=== PATIENT | male | born 1970 | race Caucasian/White ===

== ENCOUNTER 2020-09-12 12:50 | Emergency (ER) | payer OTHER, SELFPAY ==
[2020-09-12 13:22] VITALS: BP 173/87; PULSE 93; RESP 18; TEMP 36.4; O2SAT 99
[2020-09-12 14:29] VITALS: BP 163/84; PULSE 83; RESP 12; O2SAT 99
[2020-09-12] MEDS: TETANUS,DIPHTHERIA,AC PERTUSSIS ADULT (0.5 ML) BOOSTRIX IM (15:47)
--- NOTE | 2020-09-12 18:00 | ED.GENADULT ---
HPI - General Adult General Chief complaint: Wound/Laceration Stated complaint: L index finger laceration at work Time Seen by Provider: 09/12/20 14:42 Source: patient Mode of arrival: ambulatory Limitations: no limitations History of Present Illness HPI narrative: Patient presents with chief complaint of laceration to the volar aspect of the left second digit that he sustained with a metal piece on a PVC pipe. He denies any crushing injury or loss of range of motion. Patient states he is not up-to-date on tetanus. Related Data Allergies Allergy/AdvReac Type Severity Reaction Status Date / Time No Known Allergies Allergy Mild Verified 09/12/20 13:24 Review of Systems Review of Systems: Narrative: CONSTITUTIONAL: Denies fever, chills, or sweats. EYES: Denies visual changes, redness, or discharge. ENT: Denies rhinorrhea, congestion, sore throat, or otalgia. CARDIOVASCULAR: Denies chest pain, palpitations, or edema. RESPIRATORY: Denies cough or dyspnea. GASTROINTESTINAL: Denies abdominal pain, nausea, vomiting, or diarrhea. GENITOURINARY: Denies dysuria or hematuria. SKIN: Reports laceration denies rash or itching. MUSCULOSKELETAL: Denies back pain, joint pain, or myalgia. NEUROLOGIC: Denies headache, numbness, dizziness, or weakness. PSYCHIATRIC: Denies anxiety or depression. Exam Narrative: Exam Narrative: GENERAL: Well-appearing, well-nourished, and in no acute distress. HEAD: Normocephalic, atraumatic. EYES: PERRLA and EOMI. NECK: Supple. No adenopathy or masses. CHEST: Clear to auscultation. No respiratory distress. No wheezes rales or rhonchi HEART: Regular rate and rhythm. No murmur heard. Normal peripheral pulses. EXTREMITIES: Normal range of motion. No edema. SKIN: Approximately 2 cm laceration on the volar aspect of patient with second digit. No active bleeding well approximated without intervention. Not deep or gaping. Warm, dry, no rash. NEURO: No focal deficits. Alert and oriented x3. PSYCH: Normal mood and affect. Course Vital Signs Vital signs: Vital Signs Temperature 97.6 F 09/12/20 13:22 Pulse Rate 93 09/12/20 13:22 Respiratory Rate 18 09/12/20 13:22 Blood Pressure 173/87 H 09/12/20 13:22 Pulse Oximetry 99 09/12/20 13:22 Temperature 97.6 F 09/12/20 13:22 Pulse Rate 83 09/12/20 14:29 Respiratory Rate 12 09/12/20 14:29 Blood Pressure 163/84 H 09/12/20 14:29 Pulse Oximetry 99 09/12/20 14:29 Medical Decision Making MDM Narrative Medical decision making narrative: Patient's wound edges are well approximated without intervention. There is no bleeding. Wound dressed patient given wound care instructions. Suturing is not needed. Patient instructed to follow-up with primary care occupational medicine for reevaluation. Patient updated on his Tdap. Vital Signs Vital Signs: Vital Signs Temperature 97.6 F 09/12/20 13:22 Pulse Rate 93 09/12/20 13:22 Respiratory Rate 18 09/12/20 13:22 Blood Pressure 173/87 H 09/12/20 13:22 Pulse Oximetry 99 09/12/20 13:22 Temperature 97.6 F 09/12/20 13:22 Pulse Rate 83 09/12/20 14:29 Respiratory Rate 12 09/12/20 14:29 Blood Pressure 163/84 H 09/12/20 14:29 Pulse Oximetry 99 09/12/20 14:29 Discharge Plan Discharge Clinical Impression: Laceration Patient Disposition: Home, Self-Care Condition: Stable Instructions: Antibiotic Form, Laceration (ED) Additional Instructions: Keep areas clean. Wash with antibacterial soap and apply antibacterial ointment. Keep covered in dirty environments. Follow-up with primary care if any signs of infection present. Avoid overuse until wound heals. Follow-up with primary care for reevaluation of wounds within 1 week. Return to emergency department if you develop any new, worsening, or emergent symptoms. Follow-up/Referrals: PHYSICIAN,SUPERVISOR [employer] [Primary Care Provider] - Time of Disposition: 15:38
--- NOTE | 2020-09-14 07:39 | PCCCNOTE ---
Unable to report to ID thru portal system d/t no SS# in the chart
--- NOTE | 2020-09-14 12:47 | PCCCNOTE ---
Called in Notification [phone] Notification # [id number]
== END 2020-09-12 15:52 | disposition home or self-care (01) ==
PROVIDERS: Emergency Provider Emergency Medicine
DX: S61.211A Laceration without foreign body of left index finger without damage to nail, initial encounter (principal); W26.8XXA Contact with other sharp object(s), not elsewhere classified, initial encounter; Z23 Encounter for immunization
CPT/HCPCS: 90471; 90715; 99282

== ENCOUNTER 2023-03-27 02:03 | Day surgery (SDC) | payer BC, SELFPAY ==
[2023-03-15 09:11] VITALS: BMI 27.8
--- NOTE | 2023-03-26 14:55 | PM.HPGS ---
History of Present Illness History of Present Illness Consent: Risks, benefits, and alternatives have been discussed and questions answered. Patient agrees to proceed with procedure. Chief complaint: neoplasm screening Narrative: Marti Berkowitz is a 52 year old male referred for colon cancer screening. Review of Systems Review of Systems: All systems reviewed & are unremarkable except as noted in HPI and below PMFSH Social History Social History Smoking status: Never smoker Alcohol intake: current Drinks per week: 7 Substance use type: does not use Living arrangements: other Additional living arrangements comments: With sp Meds Home Medications and Allergies Home Medications Medication Instructions Recorded Confirmed Type tadalafil 10 mg tablet 10 mg PO DAILY PRN Sexual Activity 03/15/23 03/15/23 History Allergies Allergy/AdvReac Type Severity Reaction Status Date / Time No Known Allergies Allergy Mild Verified 03/27/23 08:28 Exam Const: General: alert Orientation/consciousness: patient oriented x3 Resp: Auscultation: clear to auscultation bilaterally Cardio: Rhythm: regular rhythm GI: GI Palp: Yes Soft to palpation and No Tenderness to palpation present (GI) Neuro: General: patient oriented x3 Assessment and Plan Assessment and plan (1) Colon cancer screening: Code(s): Z12.11 - Encounter for screening for malignant neoplasm of colon Status: Acute Assessment and Plan: Colonoscopy with possible biopsy or polypectomy or cautery or injection of substances.
[2023-03-27 08:33] VITALS: BP 126/102; PULSE 80; RESP 18; TEMP 36.1; O2SAT 98
[2023-03-27] MEDS: LACTATED RINGERS 1,000 ML 150 ML IV CONT (08:41)
--- NOTE | 2023-03-27 09:10 | P.PNAN_ITS ---
Anes - Initial Pre Proc Eval Procedure: Operation Date: 03/27/23 09:30 Proposed Procedures p Screening Colonoscopy - Jovan Bruce MD Date/Time: 03/27/23 09:10 Surgeon: Jovan Bruce MD Pre Op Diagnosis: neoplasm screening Patient Data Age: 52 Gender: M Height: 1.83 m Weight: 90.2 kg Last Vital Signs Temp 97 F L 03/27/23 08:33 Pulse 80 03/27/23 08:33 Resp 18 03/27/23 08:33 BP 126/102 H 03/27/23 08:33 Pulse Ox 98 03/27/23 08:33 O2 Del Method Room Air 03/27/23 08:33 Allergies Allergy/AdvReac Type Severity Reaction Status Date / Time No Known Allergies Allergy Mild Verified 03/27/23 08:28 Home Medications Medication Instructions Recorded Confirmed Type tadalafil 10 mg tablet 10 mg PO DAILY PRN Sexual Activity 03/15/23 03/15/23 History Patient hx anesthesia problems: none Family hx anesthesia problems: none Results Review: All pre-operative results and documents have been reviewed as part of the pre- operative evaluation. [facility] Social History Social History Smoking status: Never smoker Alcohol intake: current Drinks per week: 7 Substance use type: does not use Living arrangements: other Additional living arrangements comments: With sp Anes - Eval Final PreProcedure Day of Procedure 03/27/23 09:10 Patient weight: overweight Heart: regular rate and rhythm Lungs: clear to auscultation Airway: Mallampati scale class II Neurological: alert and oriented Last oral intake: >/= 8 hours ASA classification: II Emergent: no Anesthetic plan: proceed Anesthesia type and monitoring: general GIVS and standard monitoring Results Review: All pre-operative results and documents have been reviewed as part of the pre- operative evaluation. Informed Consent: The patient's anesthetic plan and its attendant risks and benefits were discussed with the patient/family/POA. Questions were solicited and answers provided to the satisfaction of the patient/family/POA.
[2023-03-27 09:32] VITALS: BP 147/99; PULSE 80; RESP 18; O2SAT 97
[2023-03-27 09:42] VITALS: BP 147/98; PULSE 68; RESP 22; O2SAT 98
[2023-03-27 09:52] VITALS: BP 160/102; PULSE 70; RESP 20; O2SAT 98
== END 2023-03-27 09:59 | disposition home or self-care (01) ==
PROVIDERS: PCP Physician Assistant; Visit Provider Internal Medicine Gastroenterology
PROC: 0DJD8ZZ Inspection of Lower Intestinal Tract, Via Natural or Artificial Opening Endoscopic (ICD-10-PCS; CPT 45378; principal; 2023-03-27 09:30)
DX: Z12.11 Encounter for screening for malignant neoplasm of colon (principal); K62.1 Rectal polyp; K57.30 Diverticulosis of large intestine without perforation or abscess without bleeding
CPT/HCPCS: 45380; 88305; J2704; J7120

== ENCOUNTER 2023-07-10 15:28 | Emergency (ER) | payer BC, SELFPAY ==
--- NOTE | ~2023-07-10 | XR_ITS ---
EXAMINATION: XR chest 2V DATE: 07/10/2023 17:46 INDICATION: Hypertension. TECHNIQUE: PA and lateral views of the chest were obtained. COMPARISON: None FINDINGS: The lungs are clear with no focal airspace opacities, pulmonary edema, pleural effusion or pneumothor ax. The cardiomediastinal silhouette is normal. Moderate thoracic spondylosis. IMPRESSION: 1. No acute cardiopulmonary disease. Reviewed, dictated and finalized at location [facility]
[2023-07-10 15:32] VITALS: BP 188/120; PULSE 94; RESP 20; TEMP 36.6; O2SAT 100
--- NOTE | 2023-07-10 15:36 | ECG_ITS ---
Measurements Intervals Porter Rate: 79 P: 58 RI: 168 QRS: -14 QRSD: 108 T: 35 QT: 353 QTc: 405 Interpretive Statements SINUS RHYTHM NORMAL ECG NO PREVIOUS ECG AVAILABLE FOR COMPARISON Electronically Signed On 07-10-2023 15:54:00 [employer]NAGER by Rafael Siddiqi D.O.
[2023-07-10 15:49] LABS: Basophils Absolute Auto 0.1 K/mm3 (0.0-0.1); Basophils Percent Auto 0.9 % (0.2-1.2); Eosinophils Absolute Auto 0.2 K/mm3 (0-0.3); Eosinophils Percent Auto 1.6 % (0-4.4); Hematocrit 46.2 % (42.0-52.0); Hemoglobin 16.2 g/dL (14.0-18.0); Immature Granulocyte Absolute 0.04 K/mm3 (0.00-0.031); Immature Granulocyte Percent A 0.4 % (0-0.5); Lymphocytes Absolute Auto 1.54 K/mm3 (0.9-3.2); Lymphocytes Percent Auto 16.7 % (18.3-44.2); Mean Corpuscular HGB Conc 35.1 g/dl (32-36); Mean Corpuscular Hemoglobin 33.4 pg (26-34); Mean Corpuscular Volume 95.3 fl (80-100); Mean Platelet Volume 10.8 fl (7.4-10.4); Monocytes Absolute Auto 0.8 K/mm3 (0.1-0.6); Monocytes Percent Auto 8.1 % (2.6-8.5); Neutrophils Absolute Auto 6.7 K/mm3 (1.3-6.7); Neutrophils Percent Auto 72.3 % (45.5-73.1); Platelet Count Result 231 k/mm3 (150-375); Red Blood Count 4.85 M/mm3 (4.6-6.20); Red Cell Distribution Width 11.8 % (11.5-14.5); White Blood Count 9.2 K/mm3 (4.5-10.0)
[2023-07-10 15:59] LABS: Prothrombin Time 13.2 Seconds (11.1-14.7)
[2023-07-10 16:00] LABS: Partial Thromboplastin Time 30.5 SECONDS (22.3-36.8)
[2023-07-10 16:01] LABS: Alanine Aminotransferase 84 U/L (6-50); Albumin Level 4.5 g/dL (3.5-5.1); Alkaline Phosphatase 91 U/L (38-126); Anion Gap 9 mmol/L (8-16); Aspartate Amino Transferase 65 U/L (17-59); Bilirubin,Total 0.7 mg/dL (0.2-1.3); Blood Urea Nitrogen 13 mg/dL (9-20); Calcium 9.9 mg/dL (8.4-10.2); Carbon Dioxide 27 mmol/L (22-30); Chloride 105 mmol/L (98-107); Estimated CRCL calculation 106 ml/min; Estimated Glomerular Filt Rate > 60; Glucose 94 mg/dL (65-110); Lipase 66 U/L (23-300); Potassium 3.9 mmol/L (3.4-5.0); Sodium 141 mmol/L (137-145)
[2023-07-10 16:12] LABS: Troponin I < 0.012 ng/mL (0.000-0.034)
--- NOTE | 2023-07-10 17:36 | ED.RECABL ---
HPI - Recheck/Abnormal Lab/Rx General Chief Complaint: Recheck/Abnormal Lab/Rx Stated Complaint: high bp Time Seen by Provider: 07/10/23 17:39 Focused HPI: This is a 52 year old male that presents to the ER for elevated blood pressure reading today. Was told on a telehealth visit that he should go to Urgent care to be seen. He is asymptomatic. GENERAL: Well-appearing, well-nourished, and in no acute distress. HEAD: Normocephalic, atraumatic. CHEST: Clear to auscultation. ?No respiratory distress. HEART: Regular rate and rhythm.? NEURO: ?Alert and oriented x3. Patient screened in triage and initial orders placed.? ?Additional care and disposition to be based upon?diagnostic testing and treatment. Source: patient Mode of arrival: ambulatory Limitations: no limitations Related Data Home Medications Medication Instructions Recorded Confirmed tadalafil 10 mg tablet 10 mg PO DAILY PRN Sexual Activity 03/15/23 03/15/23 Allergies Allergy/AdvReac Type Severity Reaction Status Date / Time No Known Allergies Allergy Mild Verified 03/27/23 08:28 Review of Systems Review of Systems: All systems reviewed & are unremarkable except as noted in HPI and below Constitutional: Constitutional: Denies fever(s) Cardiovascular: Cardiovascular: Denies chest pain Respiratory: Respiratory: Denies dyspnea Neurologic: Denies headache(s), Denies numbness and Denies weakness PMFSH Past Medical History Medical History (Updated 07/10/23 @ 18:27 by Calista Pérez PA-C) No active medical problems Social History Social History Smoking status: Never smoker Alcohol intake: current Drinks per week: 7 Substance use type: does not use Living arrangements: other Additional living arrangements comments: With sp Exam Const: General: healthy appearing and no acute distress Eyes: EOM: EOMs intact bilaterally Neck: Neck: normal visual inspection Resp: Effort & Inspection: normal respiratory effort Auscultation: clear to auscultation bilaterally Cardio: Rate: regular rate Rhythm: regular rhythm Neuro: General: patient oriented x3 and moves all extremities Gait exam (Neuro): Normal gait present Extrem: General: normal to inspection Course Course Emergency Course: Patient updated on his workup and agrees with plan of care Consultations Consultation #1: Spoke with Dr. Wolf about patient and workup who would like patient started on Losartan. He will follow up with him in clinic Date: 07/10/23 Vital Signs Vital signs: Vital Signs Temperature 97.8 F 07/10/23 15:32 Pulse Rate 94 07/10/23 15:32 Respiratory Rate 20 07/10/23 15:32 Blood Pressure 188/120 H 07/10/23 15:32 Pulse Oximetry 100 07/10/23 15:32 Oxygen Delivery Room Air 07/10/23 15:32 Temperature 97.8 F 07/10/23 15:32 Pulse Rate 94 07/10/23 15:32 Respiratory Rate 20 07/10/23 15:32 Blood Pressure 188/120 H 07/10/23 15:32 Pulse Oximetry 100 07/10/23 15:32 Oxygen Delivery Room Air 07/10/23 15:32 MDM - Recheck/Abnormal Lab/Rx MDM Narrative Medical decision making narrative: Patient presents to the ER for elevated blood pressure reading on a home blood pressure cuff. He is asymptomatic. Blood pressure elevated at 188/120. CBC without concerning findings. Mild transaminitis noted on metabolic panel. No concerning changes on EKG. Baseline troponin is negative. Chest x-ray without acute findings. Patient does not have an established PCP. Spoke with Dr. Wolf, primary fashion director, about patient and workup who would like patient started on Losartan. He will follow up with him in clinic. Patient was given warnings to return to the ER Differential Diagnosis Differential diagnosis: Likely other (chronic hypertension, hypertension urgency) Lab Data Attestation: I reviewed the patient's lab results. 07/10/23 15:40 07/10/23 15:40 Labs: Lab Resul
[2023-07-10 19:37] VITALS: BP 174/110; PULSE 84; RESP 20; O2SAT 98
== END 2023-07-10 19:38 | disposition home or self-care (01) ==
LOC: ANHED 18:41
PROVIDERS: Emergency Medicine; Emergency Provider Physician Assistant; PCP Physician Assistant
DX: I10 Essential (primary) hypertension (principal)
CPT/HCPCS: 36415; 71046; 80053; 83690; 84484; 85025; 85610; 85730; 93005; 99284

== ENCOUNTER 2024-01-15 02:13 | Day surgery (SDC) | payer BC, SELFPAY ==
[2023-12-24 11:37] VITALS: BMI 27.4
[2024-01-15 11:52] VITALS: BP 146/89; PULSE 63; RESP 17; TEMP 36.2; O2SAT 98
[2024-01-15] MEDS: LACTATED RINGERS 1,000 ML 150 ML IV CONT (12:03)
--- NOTE | 2024-01-15 12:41 | P.PNAN_ITS ---
Anes - Initial Pre Proc Eval Procedure: Operation Date: 01/15/24 13:00 Proposed Procedures p Esophagogastroduodenoscopy - Miko Chahal MD Date/Time: 01/15/24 12:41 Surgeon: Miko Chahal MD Pre Op Diagnosis: Abnormal imaging Patient Data Age: 53 Gender: M Height: 1.85 m Weight: 93.7 kg Last Vital Signs Temp 36.2 C L 01/15/24 11:52 Pulse 63 01/15/24 11:52 Resp 17 01/15/24 11:52 BP 146/89 H 01/15/24 11:52 Pulse Ox 98 01/15/24 11:52 O2 Del Method Room Air 01/15/24 11:52 Allergies Allergy/AdvReac Type Severity Reaction Status Date / Time No Known Allergies Allergy Mild Verified 01/15/24 11:51 Home Medications Medication Instructions Recorded Confirmed Type tadalafil 10 mg tablet 10 mg PO DAILY PRN Sexual Activity 03/15/23 12/24/23 History carvedilol 6.25 mg tablet 6.25 mg PO DAILY 12/24/23 01/15/24 History losartan 50 mg tablet 100 mg PO DAILY 12/24/23 12/24/23 History ropinirole 0.25 mg tablet 0.25 mg PO DAILY 12/24/23 12/24/23 History rosuvastatin 20 mg tablet 20 mg PO DAILY 12/24/23 12/24/23 History Patient hx anesthesia problems: none Family hx anesthesia problems: none Results Review: All pre-operative results and documents have been reviewed as part of the pre- operative evaluation. [facility] Past Medical History Medical History No active medical problems Family History Family History Father Patient's father is in good health Family history of diabetes mellitus in first degree relative Family history of hearing loss Sibling Patient's sister is in good health Patient's brother is in good health Mother Family history of malignant neoplasm of ovary, Onset Age: 71 Patient's mother is Social History Social History Smoking status: Former smoker Tobacco type: cigarettes Alcohol intake: current Drinks per week: 14 Substance use: current Substance use type: marijuana Other substance usage details: once a month Living arrangements: with family Additional living arrangements comments: With sp Spiritual care concerns: No Anes - Eval Final PreProcedure Day of Procedure 01/15/24 12:41 Patient weight: overweight Heart: regular rate and rhythm Lungs: clear to auscultation Airway: Mallampati scale class II Neurological: alert and oriented Last oral intake: >/= 8 hours ASA classification: III Emergent: no Anesthetic plan: proceed Anesthesia type and monitoring: general GIVS and standard monitoring Results Review: All pre-operative results and documents have been reviewed as part of the pre- operative evaluation. Informed Consent: The patient's anesthetic plan and its attendant risks and benefits were discussed with the patient/family/POA. Questions were solicited and answers provided to the satisfaction of the patient/family/POA.
--- NOTE | 2024-01-15 13:19 | PM.HPGS ---
History of Present Illness History of Present Illness Consent: Risks, benefits, and alternatives have been discussed and questions answered. Patient agrees to proceed with procedure. Chief complaint: Abnormal imaging Narrative: Marti Berkowitz is a 53 year old male here for first egd, had chest pain and had imaging of chest as part of evaluation, noted thickening at GEJ, he denies any dysphagia or gerd symptom. Review of Systems Review of Systems: All systems reviewed & are unremarkable except as noted in HPI and below PMFSH Past Medical History Medical History (Updated 01/15/24 @ 13:20 by Miko Chahal MD) Abnormal CT scan, esophagus No active medical problems Family History Family History Father Patient's father is in good health Family history of diabetes mellitus in first degree relative Family history of hearing loss Sibling Patient's sister is in good health Patient's brother is in good health Mother Family history of malignant neoplasm of ovary, Onset Age: 71 Patient's mother is Social History Social History Smoking status: Former smoker Tobacco type: cigarettes Alcohol intake: current Drinks per week: 14 Substance use: current Substance use type: marijuana Other substance usage details: once a month Living arrangements: with family Additional living arrangements comments: With sp Spiritual care concerns: No Meds Home Medications and Allergies Home Medications Medication Instructions Recorded Confirmed Type tadalafil 10 mg tablet 10 mg PO DAILY PRN Sexual Activity 03/15/23 12/24/23 History carvedilol 6.25 mg tablet 6.25 mg PO DAILY 12/24/23 01/15/24 History losartan 50 mg tablet 100 mg PO DAILY 12/24/23 12/24/23 History ropinirole 0.25 mg tablet 0.25 mg PO DAILY 12/24/23 12/24/23 History rosuvastatin 20 mg tablet 20 mg PO DAILY 12/24/23 12/24/23 History Allergies Allergy/AdvReac Type Severity Reaction Status Date / Time No Known Allergies Allergy Mild Verified 01/15/24 11:51 Vital Signs Vital Signs - 24 hr 01/15/24 11:52 Temperature 97.1 F L Pulse Rate 63 Respiratory Rate 17 Blood Pressure 146/89 H Pulse Oximetry 98 Oxygen Delivery Room Air Exam Const: General: comfortable and no acute distress HENMT: Face/Nose/Sinus: Normal nares present Eyes: General: appearance normal, both eyes and all related structures Neck: Neck: no JVD Resp: Auscultation: clear to auscultation bilaterally Cardio: Rate: regular rate Rhythm: regular rhythm GI: Inspection: non-distended GI Palp: Yes Soft to palpation Skin: General skin exam: normal color Neuro: General: gait normal Speech: normal speech Extrem: General: normal to inspection Psych: Mental Status: mental status grossly normal Assessment and Plan Assessment and plan (1) Abnormal CT scan, esophagus: Code(s): R93.3 - Abnormal findings on diagnostic imaging of other parts of digestive tract Status: Acute Assessment and Plan: asymptomatic will assess with egd
[2024-01-15 13:35] VITALS: BP 143/84; PULSE 67; RESP 18; O2SAT 97
[2024-01-15 13:45] VITALS: BP 125/82; PULSE 65; RESP 18; O2SAT 98
[2024-01-15 13:55] VITALS: BP 127/78; PULSE 57; RESP 18; O2SAT 98
== END 2024-01-15 14:09 | disposition home or self-care (01) ==
PROVIDERS: PCP Physician Assistant; Visit Provider Internal Medicine Gastroenterology
PROC: 0DJ08ZZ Inspection of Upper Intestinal Tract, Via Natural or Artificial Opening Endoscopic (ICD-10-PCS; CPT 43235; principal; 2024-01-15 13:00)
DX: K21.00 Gastro-esophageal reflux disease with esophagitis, without bleeding (principal); K44.9 Diaphragmatic hernia without obstruction or gangrene; Z87.891 Personal history of nicotine dependence; F12.90 Cannabis use, unspecified, uncomplicated
CPT/HCPCS: 43239; 88305; J2001; J2704; J7120

== ENCOUNTER 2024-04-03 08:40 | Emergency (ER) | payer BC, SELFPAY ==
--- NOTE | ~2024-04-03 | XR_ITS ---
EXAMINATION: XR chest 2V DATE: 04/03/2024 09:16 INDICATION: Cough and fever and shortness of breath. TECHNIQUE: Frontal and lateral views of the chest were obtained on 4 radiographs. COMPARISON: Chest 2 views 07/10/2023 FINDINGS: There are airspace opacities in left lower lobe, consistent with pneumonia. No pleural effu len or pneumothorax. The heart size is normal. IMPRESSION: 1. Left lower lobe pneumonia. Reviewed, dictated and finalized at location A.
[2024-04-03 08:49] VITALS: BP 128/71; PULSE 91; RESP 18; TEMP 36.6; O2SAT 97
--- NOTE | 2024-04-03 09:10 | ED.URI ---
HPI - URI/Sore Throat General Chief Complaint: Upper Respiratory Infection Stated Complaint: Fever Source: patient Mode of arrival: ambulatory Limitations: no limitations History of Present Illness HPI Narrative: 53-year-old male with a history of hypertension presented for complaint of cough, shortness of breath and fever. Onset 5 days. Reports temp up to 104 last night, states it broke quickly. Endorses fatigue, abdominal bloating sensation, mild nasal congestion and sore throat. Has been taking cough medication for symptoms. Denies nausea, vomiting, diarrhea. Related Data Home Medications Medication Instructions Recorded Confirmed tadalafil 10 mg tablet 10 mg PO DAILY PRN Sexual Activity 03/15/23 04/03/24 carvedilol 6.25 mg tablet 6.25 mg PO DAILY 12/24/23 04/03/24 losartan 50 mg tablet 100 mg PO DAILY 12/24/23 04/03/24 ropinirole 0.25 mg tablet 0.25 mg PO DAILY 12/24/23 04/03/24 rosuvastatin 20 mg tablet 20 mg PO DAILY 12/24/23 04/03/24 Allergies Allergy/AdvReac Type Severity Reaction Status Date / Time No Known Allergies Allergy Mild Verified 04/03/24 09:04 Review of Systems Review of Systems: CONSTITUTIONAL: Denies body aches, reports fever EYES: Denies visual changes, redness, or discharge. ENT: Reports rhinorrhea, sore throat, denies otalgia. CARDIOVASCULAR: Denies chest pain, palpitations, or edema. RESPIRATORY: Reports cough, sob, denies wheezing. GASTROINTESTINAL: Denies abdominal pain, nausea, vomiting, or diarrhea. SKIN: Denies rash, itching, or wounds. MUSCULOSKELETAL: Denies back pain, joint pain, or myalgia. NEUROLOGIC: Denies headache, numbness, tingling, or weakness. All systems reviewed & are unremarkable except as noted in HPI and below PMFSH Past Medical History Medical History (Updated 04/03/24 @ 09:25 by Linda Dunham APRN) Abnormal CT scan, esophagus No active medical problems Family History Family History Father Patient's father is in good health Family history of diabetes mellitus in first degree relative Family history of hearing loss Sibling Patient's sister is in good health Patient's brother is in good health Mother Family history of malignant neoplasm of ovary, Onset Age: 71 Patient's mother is Social History Social History Smoking status: Former smoker Tobacco type: cigarettes Alcohol intake: current Drinks per week: 14 Substance use: current Substance use type: marijuana Other substance usage details: once a month Living arrangements: with family Additional living arrangements comments: With sp Spiritual care concerns: No Comments At time of signature, I have reviewed and agree with nursing past medical, surgical, social and family history unless otherwise noted. Please see nursing chart for further information. There is no relevant family history pertinent to the presenting complaint Exam Narrative: GENERAL: Well-appearing, in no acute distress. EYES: EOMI. No redness or drainage. Conjunctivae normal. ENT: Mucous membranes pink and moist. No rhinorrhea. TMs normal bilaterally. Throat mildly erythematous. Uvula midline. NECK: Normal AROM. CHEST: No respiratory distress, speaks full sentences. Slightly coarse to bilateral bases, otherwise clear HEART: Regular rate and rhythm. No murmur appreciated. ABDOMEN: Soft, nontender, nondistended, normal active bowel sounds. SKIN: Warm, dry, no rash. Capillary refill normal. Normal skin turgor. NEURO: Alert and oriented x3. Gait steady. PSYCH: Normal affect. Course Course Emergency Course: Patient is aware of diagnosis, understands and agrees to treatment plan. Anticipatory guidance given. Patient agrees to follow-up as directed and is aware of reasons to seek care at the emergency department. Portions of this record may have been created with voice recognition software Level of Care: Express Care Visit Vital Signs Vital signs: Vital Signs Temperature 97.8 F 04/03/24 08:49 Pulse Rate 91 04/03/24 08:49 Respiratory Rate 18 04/03/24 08:49 Blood Pressure 128/71 04/03/24 08:49 Pulse Oximetry 97 04/03/24 08:49 Oxygen Delivery Room Air 04/03/24 08:49 Temperature 97.8 F 04/03/24 08:49 Pulse Rate 91 04/03/24 08:49 Respiratory Rate 18 04/03/24 08:49 Blood Pressure 128/71 04/03/24 08:49 Pulse Oximetry 97 04/03/24 08:49 Oxygen Delivery Room Air 10/25/24 08:49 MDM - URI/Sore Throat MDM Narrative Medical decision making narrative: Results of flu and COVID reviewed with patient. Chest x-ray reviewed; LLL pneumonia. Discussed physical exam findings. Advised supportive measures and signs/symptoms to go to the ER. Pt is appropriate for outpt treatment and f/u. Differential Diagnosis Differential diagnosis: Likely upper respiratory infection, sinusitis, viral infection, bronchitis, pharyngitis and other (pneumonia) Imaging Data Radiologist's impression: Patient: Marti Berkowitz : 1970 MR#: [id number] Age: 53 Acct:[id number] Loc: [id number] ADM Date: 04/03/24Attending Dr: Ordering Physician: Linda Dunham APRN Date of Service: 04/03/24 Procedure(s): XR chest 2V Accession Number(s): [id number] cc: Linda Dunham APRN; UNKNOWN,DOCTOR~ EXAMINATION: XR chest 2V DATE: 04/03/2024 09:16 INDICATION: Cough and fever and shortness of breath. TECHNIQUE: Frontal and lateral views of the chest were obtained on 4 radiographs. COMPARISON: Chest 2 views 07/10/2023 FINDINGS: There are airspace opacities in left lower lobe, consistent with pneumonia. No pleural effusion or pneumothorax. The heart size is normal. IMPRESSION: 1. Left lower lobe pneumonia. Discharge Plan Discharge Clinical Impression: Pneumonia Patient Disposition: Home, Self-Care Condition: Stable Instructions: Antibiotic Form, Pneumonia (ED) Additional Instructions: Pneumonia is a lung infection that can cause a fever, cough, and trouble breathing. How it spreads: When someone with bacterial pneumonia coughs, sneezes, or talks, they release respiratory droplets into the air that can be inhaled by others.?You can also get pneumonia by touching a contaminated surface or object and then touching your mouth or nose. You're generally contagious for around 48 hours after starting antibiotics and your fever goes away.? To prevent the spread of pneumonia, you can:? ? Get vaccinated? ? Wash your hands often with soap and water for 20 seconds? ? Cover your mouth with a tissue when you cough or sneeze? ? Avoid people who are already sick with pneumonia? ? Stay home when you have pneumonia Take antibiotics as directed until complete. eat small frequent meals. Get lots of rest and drink fluids. Tylenol and ibuprofen as needed for pain/fever Call your Primary Care Doctor and make a follow-up appointment in 3 days. Go to the ER for worsening symptoms or concerns Prescriptions: New amoxicillin 500 mg tablet 1,000 mg PO Q12H 7 Days Qty: 28 0RF methylprednisolone [Medrol (Kip)] 4 mg tablets,dose pack See Rx Instructions .ROUTE .COMPLEX Qty: 21 0RF Rx Instructions: orally per package directions No Action carvedilol 6.25 mg tablet 6.25 mg PO DAILY ropinirole 0.25 mg tablet 0.25 mg PO DAILY rosuvastatin 20 mg tablet 20 mg PO DAILY losartan 50 mg tablet 100 mg PO DAILY omeprazole 20 mg capsule,delayed release(DR/EC) 20 mg PO .daily Qty: 30 5RF tadalafil 10 mg Tablet 10 mg PO DAILY PRN (Reason: Sexual Activity) Rx Instructions: administer approximately 30min before sexual activity; do not use more than 1 dose per 24hrs Follow-up/Referrals: UNKNOWN,DOCTOR [Primary Care Provider] - Time of Disposition: 09:36
[2024-04-03 09:35] LABS: EDCOVIDSCREEN Negative (Negative); EDINFLUASCREEN Negative (Negative); EDINFLUBSCREEN Negative (Negative); EDSTREPNEGPOS1 Negative (Negative)
== END 2024-04-03 09:52 | disposition home or self-care (01) ==
PROVIDERS: Emergency Provider Nurse Practitioner Family
DX: J18.9 Pneumonia, unspecified organism (principal); Z79.899 Other long term (current) drug therapy; Z87.891 Personal history of nicotine dependence; Z20.822 Contact with and (suspected) exposure to COVID-19
CPT/HCPCS: 71046; 87081; 87426; 87804; 87880; 99213; G0463